=== PATIENT | female | born 1995 ===

== ENCOUNTER 2022-05-22 20:37 | Inpatient (IN) | payer MEDICAID ==
[2022-05-22 20:54] VITALS: BP 113/56; PULSE 73; RESP 18; TEMP 97.5
[2022-05-22] MEDS ORDERED: ACETAMINOPHEN TAB 325 MG TAB PO PRN (21:33)
[2022-05-22] MEDS ORDERED: MAG HYDROX/AL HYDROX/SIMETH 30 ML CUP PO PRN (21:33)
[2022-05-22] MEDS ORDERED: MAGNESIUM HYDROXIDE 2,400 MG/10 ML CUP PO PRN (21:33)
[2022-05-22] MEDS: diphenhydrAMINE 50 MG CAP PO PRN (21:53)
--- NOTE | 2022-05-23 04:11 | P.MDCNMH ---
History of Present Illness H&P Date: 05/23/22 Chief Complaint: depression 26 year old female with epilepsy off her medications with most recent seizure 2 months ago. she stopped her meds due to , currently she is 12 weeks , desired with supportive baby father. patient has two other kids. she comes in for psych evaluation due to depression , she used to be on zoloft , but stopped her meds due to , she denies suicidal ideation , denies any auditory or visual hallucinations. she is following with OB OP for care, and claims to be uptodate on shots and tests. denies tobacco smoking, illicit drugs or alcohol denies any fever, chills, bleeding, vaginal discharge, abd pain , chest pain , trouble breathing, nausea or vomiting Review of Systems Pertinent positives as noted in HPI. All other systems were reviewed and are negative Past Medical History Additional Past Medical History / Comment(s): epilepsy Smoking Status: Never smoker Past Alcohol Use History: None Reported Past Drug Use History: None Reported - Past Family History family Additional Family Medical History / Comment(s): no cardiac history Medications and Allergies Allergies Allergy/AdvReac Type Severity Reaction Status Date / Time codeine Allergy Unknown Verified 05/22/22 14:10 haloperidol [From Haldol] Allergy Unknown Verified 05/22/22 14:10 Physical Exam Vitals: Vital Signs Temp Pulse Resp BP Pulse Ox 05/22/22 20:52 97.5 F L 73 18 113/56 97 Intake and Output 05/22/22 05/22/22 05/23/22 14:59 22:59 06:59 Other: Weight 119 kg Constitutional: No acute distress, conversant, pleasant Eyes: Anicteric sclerae, moist conjunctiva, Pupils equal round reactive to light ENMT: NC/AT Oropharynx clear, no erythema, or exudates Neck: Supple, no masses, or JVD No carotid bruits No thyromegaly Lungs: Clear to auscultation Clear to percussion Normal respiratory effort, no accessory muscle use Cardiovascular: Heart regular in rate and rhythm, No murmurs, gallops, or rubs No peripheral edema Abdominal: Soft Nontender, no guarding, rebound or rigidity Abdomen moving with respiration Normoactive bowel sounds No hepatomegaly, No splenomegaly No palpable mass Skin: Normal temperature, tone, texture, turgor Extremities: No digital cyanosis No clubbing Pedal pulses intact and symmetrical Radial pulses intact and symmetrical No calf tenderness Psychiatric: Alert and oriented to person, place and time Neuro Muscles Strength 5/5 in all 4 extremities Sensation to light touch grossly present throughout Cranial nerves II-XII grossly intact Lymphatics: no palpable cervical or supraclavicular lymph nodes Cranial Nerve Examination - Cranial Nerves Cranial Nerve II- Optic: Intact Cranial Nerve III- Oculomotor: Intact Cranial Nerve IV- Trochlear: Intact Cranial Nerve V- Trigeminal: Intact Cranial Nerve - Abducens: Intact Cranial Nerve VII- Facial: Intact Cranial Nerve VIII- Auditory: Intact Cranial Nerve IX- Glossopharyngeal: Intact Cranial Nerve X- Vagus: Intact Cranial Nerve XI- Accessory: Intact Cranial Nerve XII- Hypoglossal: Intact Assessment and Plan Assessment: depression , management per psych 12 weeks continue with vitamins continue OP OB follow up h/o epilepsy off her meds due to consider neuro consult for recommendations most recent breakthrough seizure 2 months ago follow up blood work Thank you for allowing us to participate in the care of this patient. We will follow peripherally. Do not hesitate to contact us with questions. Someone can be reached from the [facility] hospitalist group at all hours of the day at [phone].
[2022-05-23] MEDS: PRENATAL VIT-IRON-FOLIC ACID 1 EACH TABLET PO SCH (08:16)
[2022-05-23] MEDS ORDERED: CITALOPRAM HYDROBROMIDE 10 MG TAB PO STA (10:05)
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
[2022-05-23] MEDS: diphenhydrAMINE 50 MG CAP PO PRN (20:02)
[2022-05-24] MEDS: CITALOPRAM HYDROBROMIDE 10 MG TAB PO SCH (08:30)
[2022-05-24] MEDS: PRENATAL VIT-IRON-FOLIC ACID 1 EACH TABLET PO SCH (09:29)
[2022-05-24] MEDS: diphenhydrAMINE 50 MG CAP PO PRN (21:15)
--- NOTE | 2022-05-24 21:21 | P.PN ---
Progress Note - Text Progress Note Date: 05/24/22 Interval history: Patient was seen socializing with male peer and was directable and agreeable to speak with fiction and nonfiction prose writer. She reports mood is "fine", reports good sleep and appetite. She denies any concerns currently. At this time patient denies any suicidal or homicidal ideation, intent or plan; and denies any auditory or visual hallucinations. Patient denies any side effects from the medications and has been compliant with meds. Mental status exam: General Appearance: Patient appears to be obese, stated age, fair hygiene. Behavior: No agitated behavior. Patient is calm and directable. Speech: Patient's speech is fluent and non-pressured. Mood/Affect: Mood is improving mildly, affect is congruent and constricted. Suicidality/Homicidality: Patient denies having any suicidal or homicidal ideation intent or plan. Perceptions: Patient denies any auditory or visual hallucinations. Though content/process: There is no evidence of any delusional thought content and thought process is linear and goal-directed. Memory and concentration: AOX3, grossly intact for the purposes of this session Judgment and insight: improving mildly Assessment/Plan: Continue with current diagnosis. Patient continues to meet criteria for inpatient psychiatric admission for symptom stabilization and safety. Patient will be maintained on current psychotropic medication regimen. Monitor for medication compliance and for any psychotropic medication side effects. Will continue to monitor ongoing response to treatment. Encouraged participation in milieu.
[2022-05-25] MEDS ORDERED: diphenhydrAMINE 50 MG/ML 1 ML VIAL IM STA (01:42)
[2022-05-25] MEDS ORDERED: OLANZapine 10 MG VIAL IM STA (01:43)
[2022-05-25] MEDS: CITALOPRAM HYDROBROMIDE 10 MG TAB PO SCH (10:21)
[2022-05-25] MEDS: PRENATAL VIT-IRON-FOLIC ACID 1 EACH TABLET PO SCH (10:21)
[2022-05-25] MEDS ORDERED: OLANZapine 5 MG TAB PO PRN (21:17)
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
[2022-05-25] MEDS: diphenhydrAMINE 50 MG CAP PO PRN (22:31)
[2022-05-26] MEDS: CITALOPRAM HYDROBROMIDE 10 MG TAB PO SCH (09:15)
[2022-05-26] MEDS: PRENATAL VIT-IRON-FOLIC ACID 1 EACH TABLET PO SCH (09:15)
--- NOTE | 2022-05-26 13:00 | P.PN ---
Progress Note - Text Progress Note Date: 05/26/22 S&O: Patient was seen in rounds. She refused to talk to me or come for the examination when she was called this morning. She said she is 12 weeks and came to the hospital to be put down some other medications than Zoloft since she is . She was started on Celexa and is now taking 10 mg a day. PDR gives information only about breast-feeding and not the dangers of taking Celexa when she is . She was counseled about it and she is fine with taking Celexa. She said her depression is getting better and suicide thoughts are not there at all. She said she was in the correction and she will be returning to the correction when we discharge her. Following this she left the office and refused to stay and participate with the examination any further. While she was in the office she did not show any psychomotor agitation or retardation. Her speech was short and goal-directed. Her mood was euthymic and affect was blunted. She denied suicide and homicide thoughts, hallucinations and delusional thinking. Her sensorium appeared to be clear. A&P: Continue current medications therapy and supervision.
[2022-05-26] MEDS: diphenhydrAMINE 50 MG CAP PO PRN (19:54)
[2022-05-26] MEDS ORDERED: OLANZapine 10 MG VIAL IM STA (23:34)
[2022-05-26] MEDS ORDERED: diphenhydrAMINE 50 MG/ML 1 ML VIAL IM STA (23:35)
[2022-05-27] MEDS: PRENATAL VIT-IRON-FOLIC ACID 1 EACH TABLET PO SCH (09:37)
[2022-05-27] MEDS: CITALOPRAM HYDROBROMIDE 10 MG TAB PO SCH (09:38)
--- NOTE | 2022-05-27 11:46 | P.PN ---
Progress Note - Text Progress Note Date: 05/27/22 Neurology is consulted on this patient since has hx of epilepsy and patient complaining she has not been restarted on her seizure medication (Vimpat). I was notified that she is not having any recurrent seizure activity. Patient refused to be evaluated by neurology team. Some of the history is obtained form the patient's psychiatric nursing staff. To be brief this is a 26-year-old woman who is 12 week gestation. It seems that her last breakthrough seizure was in December 2021 and it was due to her not getting her Vimpat. She was evaluated my [facility] neurologist (Dr. Kimberly Colmenares) who recommended the patient to resume her Vimpat to 100 mg 1 tablet twice a day since Lamictal will take time to be in the system since in these to be titrated up. Also was recommended for the patient to be on folic acid. It seems to the patient that tried Keppra and Depakote according the to the neurology note but either failed or side-effects. Then the patient was transferred to the our psych unit and was diagnosed for major depression and has PTSD. Assessment and Plan: Hx of epilepsy and last seizure reported was on 12/2021. 12 weeks gestation Major depression PTSD I agree with the neurology recommendation of consideration of resuming Vimpat but has teratogonecity. But the benefit outweighs the risk of seizure/status to patient and . If she desires not to be on it because of the side effects consider Lamictal with titration 25mg 1tab daily and increase 25mg 1 tab bid with titration to 100mg 1 tab bid and need levels monitored. There is increase risk of rash with Lamictal during . Agree with starting on Folic acid 4mg daily. Recommend to follow-up with epileptologist as outpatient for her epilepsy management. Please notify neurology team if any further concerns. Plans is discussed with nursing staff.
--- NOTE | 2022-05-27 13:57 | P.PN ---
Progress Note - Text Progress Note Date: 05/27/22 S&O: Patient was seen in rounds. I had tried to see her this morning and she was laying down in her bed and refused to talk to me. Actually she did not even wake up when I tried to call her name several times. She said she is doing okay on Celexa and feels she is ready to return to the group home. She does not have any other complaints. She apparently had refused to see the neurologist the neurologist today regarding her Vimpat/antiseizure medications. The progress note written by Dr. Carter states that Vimpat has potential for teratogenicity. This information was shared with the patient and she refused to take it because of teratogenicity. This is an obese ambulatory female with adequate hygiene. She does not show any psychomotor agitation or retardation. Her speech is goal-directed. Mood is euthymic and affect is appropriate to the thought content. She denies hallucinations delusional thinking suicide and homicidal thoughts. Her sensorium is clear. A&P: Continue Celexa, therapies and supervisions. Her discharge plan will be discussed in the treatment team meeting tomorrow. Patient agreed with this.
[2022-05-27] MEDS: diphenhydrAMINE 50 MG CAP PO PRN (19:08)
[2022-05-28] MEDS: CITALOPRAM HYDROBROMIDE 10 MG TAB PO SCH (10:10)
[2022-05-28] MEDS: PRENATAL VIT-IRON-FOLIC ACID 1 EACH TABLET PO SCH (10:10)
--- NOTE | 2022-05-28 11:43 | P.DS ---
Providers Date of admission: 05/22/22 20:37 Expected date of discharge: 05/28/22 Attending physician: Steffen Velez MD Consults: 05/22/22 21:33 Consult Physician Routine Consulting Provider: Danie Roa Consult Reason/Comments: Medical H&P Do you want consulting provider notified?: Yes 05/26/22 19:27 Consult Physician Routine Consulting Provider: Adan Conway Consult Reason/Comments: Epileptic pt. who is needs anti-sz med Do you want consulting provider notified?: Yes Primary care physician: Stated None - Discharge Diagnosis(es) (1) Depressive disorder Current Visit: Yes Status: Acute Priority: High Hospital Course: Patient had her psychiatric H&P done on 05/23/[address] Velez and general medical history and physical done by Dr. Lugo on the same day. She was started on Celexa 10 mg a day after she had her psychiatric H&P. She took this medication without any problem and started to feel better already. Actually she said she came to the hospital to be put on some antidepressant which will not have teratogenic effect. She has the history of seizure disorder in the past, was evaluated by the medical clinic and consultation with neurologist. Apparently she was on Vimpat in the past and she refused to take it since it has teratogenic effect. She did not participate in any of the group activities and did not socialize with peers. Most of the time she was staying by herself. Since she was started on Celexa and felt she was good enough to go back to the long-term and since it was agreed upon by the treatment team it was agreed to discharge her today. Patient Condition at Discharge: Good Plan - Discharge Summary Discharge Rx Participant: Yes New Discharge Prescriptions: New Citalopram Hydrobromide [CeleXA] 10 mg PO DAILY 30 Days #30 tab Discontinued Lacosamide [Vimpat] 100 mg PO BID Discharge Medication List Citalopram Hydrobromide [CeleXA] 10 mg PO DAILY 30 Days #30 tab 05/28/22 [Rx] Activity/Diet/Wound Care/Special Instructions: Avoid the use of street drugs and alcohol. Take all prescriptions as prescribed. When you are in need of refills on your medications, please contact your medical provider and/or outpatient psychiatrist to have this done. Please go to scheduled outpatient appointment for aftercare treatment. If symptoms return or become worse, call the crisis line at and/or go to the nearest emergency room for evaluation.
== END 2022-05-28 12:55 | disposition still patient (30) | DRG 832 ==
LOC: 3MHU 20:37
PROVIDERS: ADMIT Psychiatry & Neurology Psychiatry; ATTEND Psychiatry & Neurology Psychiatry
DX: O99.341 Other mental disorders complicating pregnancy, first trimester (principal); R45.851 Suicidal ideations; O99.351 Diseases of the nervous system complicating pregnancy, first trimester; G40.909 Epilepsy, unspecified, not intractable, without status epilepticus; E66.9 Obesity, unspecified; F32.9 Major depressive disorder, single episode, unspecified; O99.211 Obesity complicating pregnancy, first trimester; F43.10 Post-traumatic stress disorder, unspecified; F41.9 Anxiety disorder, unspecified; T43.226A Underdosing of selective serotonin reuptake inhibitors, initial encounter; Z91.128 Patient's intentional underdosing of medication regimen for other reason; Z3A.12 12 weeks gestation of pregnancy; Z59.01 Sheltered homelessness; Z65.3 Problems related to other legal circumstances; Z78.1 Physical restraint status; Z28.310 Unvaccinated for COVID-19; Z88.5 Allergy status to narcotic agent; Z88.8 Allergy status to other drugs, medicaments and biological substances; Z91.52 Personal history of nonsuicidal self-harm; Z91.410 Personal history of adult physical and sexual abuse; Z79.899 Other long term (current) drug therapy

== ENCOUNTER 2023-12-08 15:57 | Inpatient (IN) | payer MEDICAID, OTHER ==
[2023-12-08] MEDS ORDERED: MAG HYDROX/AL HYDROX/SIMETH 355 ML BOTTLE PO PRN (16:29)
[2023-12-08] MEDS ORDERED: LORazepam 2 MG/ML INJ IM PRN (16:29)
[2023-12-08] MEDS ORDERED: ACETAMINOPHEN TAB 325 MG TAB PO PRN (16:29)
[2023-12-08] MEDS ORDERED: IBUPROFEN 600 MG TAB PO PRN (16:29)
[2023-12-08] MEDS: traZODone HCL 50 MG TAB PO SCH (23:49)
[2023-12-08] MEDS: LORazepam 1 MG TAB PO PRN (23:49)
[2023-12-08] MEDS: busPIRone HCl 10 MG TAB PO SCH (23:49)
[2023-12-09] MEDS: ARIPiprazole 10 MG TAB PO SCH (08:37)
[2023-12-09] MEDS: NICOTINE 14MG/24HR PATCH TRANSDERM SCH (08:37)
--- NOTE | 2023-12-09 10:47 | P.HP ---
Psychiatric H&P - . H&P Date: 12/09/23 History & Physical: IDENTIFYING DATA: Ness is a 28-year-old single female transferred from the [facility] emergency room with a petition for suicidal ideation HISTORY OF PRESENT ILLNESS: Chart reviewed and patient interviewed. She has a long history of mental illness and psychiatric treatment. She said she was discharged from [facility] 2 weeks ago and placed in a halfway called [facility]. The 30-day hospitalization was involuntarily and she was court ordered to halfway placement. She eloped from the halfway as soon as she arrived. She alleged that she was living with a girlfriend after she left the halfway. She talked about drinking alcohol but was quite evasive about frequency and amount. On the day of admission she smoked crack on "for the first time." The admission was prompted by her calling the police from a gas station. She was unable to explain the reason for calling the police other that she was "drunk." At the time of this interview she denied thoughts of or suicide. She said that she did not want to be in the halfway although she had been ordered there and would rather live with her friend. PAST PSYCHIATRIC HISTORY: She first received mental health treatment at the age of 14. She estimates that she has had between 50 and 60 psychiatric hospitalizations in her life. She was just discharged from another psychiatric facility and is currently on a court order for treatment. She has had 3 prior suicide attempts. She has history of cutting; she last cut herself with a razor 2 years ago. She is enrolled in community mental health in [facility] and prescribed Abilify 10 mg daily, BuSpar 20 mg 3 times daily and trazodone 50 mg at bedtime. She is evasive about her alcohol use but admits to drinking frequently. Denied residential substance abuse treatment. PAST MEDICAL HISTORY: Denied a history of medical problems. She had a in October 2022. ALLERGIES: Codeine, haloperidol SUBSTANCE USE HISTORY: Evasive about history of use admits recent use of crack cocaine. FAMILY PSYCHIATRIC/SUBSTANCE USE HISTORY: No reported family psychiatric history LEGAL HISTORY: Not on probation or has pending charges. 5 months in prison for domestic violence charges SOCIAL HISTORY: He was born in [place] and raised in [facility]. She is currently living with a friend although we have not verified her living situation. She was raised by her grandfather and her mother. She described her father as a drunk and addict. She has 3 children; two are in open adoption and 1 is living with her mother. 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 MENTAL STATUS EXAM: She presented as a carefully groomed moderately obese 28-year-old female. She made eye contact and attend the interview. She has multiple scars along both forearms. No prominent physical abnormalities. She had a blunted but bright facial expression. She was alert and oriented to person, place and time. No abnormality of psychomotor activity. Her speech was spontaneous with normal rate, rhythm and volume. No articulation difficulties. Her affect was blunted but stable and appropriate. No suicidal ideation, wish or homicidal ideation. No depressive cognitions. She was not obsessive, ruminative or express phobias. She denied ideas of reference, paranoid ideation or delusions. Her thinking was concrete but associations were coherent, logical and goal directed. She denied hallucinations did not appear to be responding to internal stimuli. Global impression of intellect is average. She has limited insight or understanding her illness but is accepting of treatment. STRENGTHS: Good physical health, involvement in mental health services WEAKNESSES: Alcohol use problems, erratic living situation, impulsiveness IMPRESSION: He is a 28-year-old female transferred from [facility] involuntarily with a history of alcohol intoxication and suicidal ideation. She has a complicated psychiatric history with multiple psychiatric hospitalizations. She is in violation of a continuing order for treatment. Following her last psychiatric hospitalization she was placed in a halfway from which she left and has been living apparently with a girlfriend for the last 2 weeks. She is an inpatient basis with Psychopharmacology and multiple therapy. PRINCIPLE DIAGNOSIS: Alcohol intoxication, poor compliance with treatment, borderline personality disorder, rule out major depressive disorder, rule out bipolar disorder rule out cocaine use disorder RECOMMENDATION: Admit to the psychiatric unit. She signed a voluntary admission. Resume outpatient medications-Abilify 10 mg daily, BuSpar 20 mg 3 times daily a.m. trazodone 50 mg at bedtime, consult medicine for initial physical exam and medical history. Social work, nursing and activity therapy assessment, encourage participation in therapeutic groups and activities. Evaluate clinical status response to treatment daily basis. Allergies Allergy/AdvReac Type Severity Reaction Status Date / Time codeine Allergy Unknown Verified 05/22/22 14:10 haloperidol [From Haldol] Allergy Unknown Verified 05/22/22 14:10 Vital Signs Temp 97.2 F L 12/09/23 04:09 Pulse 107 H 12/09/23 04:09 Resp 16 12/09/23 04:09 BP 122/69 12/09/23 04:09 Pulse Ox 99 12/08/23 23:11 FiO2 Intake & Output 12/08/23 12/09/23 12/09/23 18:59 06:59 18:59 Weight 109 kg 129.319 kg 12/09/23 10:26 12/09/23 13:01
[2023-12-09] MEDS: NICOTINE GUM (POLACRILEX) 2 MG GUM BUCCAL PRN (12:02)
[2023-12-09 13:47] LABS: Basophils % (A) 1 %; Eosinophils # (A) 0.2 k/uL (0-0.7); Eosinophils % (A) 3 %; HCT 43.6 % (34.0-46.0); HGB 14.1 gm/dL (11.4-16.0); Lymphocytes # (A) 1.6 k/uL (1.0-4.8); Lymphocytes % (A) 24 %; MCH 30.5 pg (25.0-35.0); MCHC 32.3 g/dL (31.0-37.0); MCV 94.4 fL (80.0-100.0); Mean Platelet Volume 7.5; Monocytes # (A) 0.5 k/uL (0-1.0); Monocytes % (A) 7 %; Neutrophils # (A) 4.3 k/uL (1.3-7.7); Neutrophils % (A) 64 %; Platelet Count 336 k/uL (150-450); RBC 4.62 m/uL (3.80-5.40); RDW 12.9 % (11.5-15.5); WBC 6.8 k/uL (3.8-10.6)
[2023-12-09 14:00] LABS: ALT 54 U/L (4-34); AST 43 U/L (14-36); African American GFR (CKD) >90 (>60 ml/min/1.73 sqM); Albumin 4.5 g/dL (3.5-5.0); Alkaline Phosphatase 111 U/L (38-126); Anion Gap 6 mmol/L; Bilirubin, Delta 0.2 mg/dL (0.0-0.2); Bilirubin,Unconjugated 0.1 mg/dL (0.0-1.1); Blood Urea Nitrogen 7 mg/dL (7-17); Calcium 8.9 mg/dL (8.4-10.2); Carbon Dioxide 29 mmol/L (22-30); Chloride 104 mmol/L (98-107); Glucose 98 mg/dL (74-99); Non-African American GFR(CKD) >90 (>60 ml/min/1.73 sqM); Potassium 4.3 mmol/L (3.5-5.1); Sodium 139 mmol/L (137-145); Total Bilirubin 0.3 mg/dL (0.2-1.3); Total Protein 7.5 g/dL (6.3-8.2)
[2023-12-09] MEDS ORDERED: OLANZapine 10 MG VIAL IM PRN (19:56)
[2023-12-09] MEDS: OLANZapine ODT 10 MG TAB PO PRN (20:02)
[2023-12-09 20:14] LABS: Chol/HDL Ratio 2.64 Ratio; LDL Cholesterol,Calculated 74.3 mg/dL (0.0-131.0)
[2023-12-09 22:48] VITALS: PULSE 92; RESP 18
--- NOTE | 2023-12-10 01:22 | P.CONS ---
History of Present Illness - Reason for Consult Consult date: 12/10/23 - History of Present Illness The patient is a 38-year-old female with a PMH of polysubstance and alcohol abuse as well as marijuana abuse who was transferred from [facility] where the patient had presented for depression and suicidal ideation. Patient reports that she has been struggling with her substance use most recently crack and cocaine as well as drinking 1/5 of hard liquor daily since she was 19 years old. Reports that her last drink was Thursday and also reports smoking half a pack of cigarettes daily with recreational marijuana use. She denied any physical complaints at the time of interview. Denied experiencing chest discomfort, shortness of breath, fever, chills, cough, nausea, vomiting, abdominal pain, diarrhea. Review of systems: Pertinent positives and negatives as discussed in HPI, a complete review of systems was performed and all other systems are negative. Physical examination: General: non toxic, no distress, appears at stated age, morbidly obese Derm: no unusual rashes/lesions, no unusual ecchymoses, warm, dry Head: atraumatic, normocephalic, symmetric Eyes: EOMI, no lid lag, anicteric sclera ENT: Nose and ears atraumatic, no thrush, no pharyngeal erythema Neck: trachea midline, supple Mouth: no lip lesion, mucus membranes moist Cardiovascular: S1S2 reg, no murmur, no edema Lungs: CTA bilateral, no rhonchi, no rales , no accessory muscle use Abdominal: soft, nontender to palpation, no guarding Ext: no gross muscle atrophy, no contractures, Neuro: No gross focal neuro deficits noted Psych: Alert, oriented, appropriate affect Assessment: Polysubstance abuse including crack cocaine, alcohol, and marijuana Transaminitis, likely due to alcohol abuse Depression and suicidal ideation Imaging: None performed Data Review: Reviewed with WBC count 6.8, hemoglobin 14.1, sodium 139, potassium 4.3, BUN 7, creatinine 0.60, AST 43, ALT 54 Plan: Strongly advised on the importance of cessation from substance use Monitor for signs of withdrawal from alcohol Defer management of depression and suicidal ideation to the primary psychiatry service Thank you for allowing us to participate in the care of this patient. We will follow peripherally. Do not hesitate to contact us with questions. Someone can be reached from the [facility] hospitalist group at all hours of the day at [phone]. Past Medical History Past Medical History: Neurologic Disorder Additional Past Medical History / Comment(s): epilepsy History of Any Multi-Drug Resistant Organisms: None Reported Past Surgical History: Section, Hysterectomy Additional Past Surgical History / Comment(s): Total hysterectomy Past Anesthesia/Blood Transfusion Reactions: No Reported Reaction Past Psychological History: Anxiety, Bipolar, Depression Smoking Status: Current every day smoker Past Alcohol Use History: None Reported Past Drug Use History: None Reported - Past Family History family Family Medical History: Hypertension Additional Family Medical History / Comment(s): no cardiac history Medications and Allergies Home Medications Medication Instructions Recorded Confirmed Type Citalopram Hydrobromide [CeleXA] 10 mg PO DAILY 30 Days #30 tab 05/28/22 Rx Allergies Allergy/AdvReac Type Severity Reaction Status Date / Time codeine Allergy Unknown Verified 05/22/22 14:10 haloperidol [From Haldol] Allergy Unknown Verified 05/22/22 14:10 Physical Exam Vitals: Vital Signs Temp Pulse Resp BP Pulse Ox 12/09/23 22:14 92 18 134/88 98 12/09/23 04:09 97.2 F L 107 H 16 122/69 Results CBC & Chem 7: 12/09/23 12:52 12/09/23 12:52 Labs: Abnormal Lab Results - Last 24 Hours (Table) 12/09/23 Range/Units 12:52 AST 43 H (14-36) U/L ALT 54 H (4-34) U/L
[2023-12-10 08:18] VITALS: BP 118/69; TEMP 96.3
--- NOTE | 2023-12-10 11:33 | P.DS ---
Providers Date of admission: 12/08/23 23:10 Attending physician: Masood Hood MD Consults: 12/08/23 16:29 Consult Physician Routine Consulting Provider: [facility] Consult Reason/Comments: Medical H&P Do you want consulting provider notified?: Yes Primary care physician: Stated None - Discharge Diagnosis(es) (1) Alcohol use disorder Current Visit: Yes Status: Chronic Priority: High (2) Alcohol intoxication Current Visit: Yes Status: Acute (3) Cocaine use Current Visit: Yes Status: Acute Priority: Medium (4) Suicidal ideation Current Visit: Yes Status: Acute Priority: Low Hospital Course: HISTORY: Ness is a 28-year-old single female transferred from the [facility] emergency room with a petition for suicidal ideation. She has a long history of mental illness and psychiatric treatment. She said she was disc harged from [facility] ago and placed in a [place] [facility] [place] called [facility]. The 30-day hospitalization was involuntarily and she was court ordered to [place] [facility] [place] placement. [place] from the [place] soon as she arrived. She alleged that she was living with a girlfriend after she left the [place]. She talked about drinking alcohol but was quite evasive about frequency and amount. On the day of admission she smoked crack on "for the first time." The admission was prompted by her calling the police from a gas station. She was unable to explain the reason for calling the police other that she was "drunk." HOSPITAL COURSE: We admitted her to the psychiatric unit under the care of this marketing copywriter. She agreed to a voluntary admission. She received comprehensive biopsychosocial assessment. The technical support consultant semiconductor dies loader completed initial physical exam and did not diagnose a major medical illness. We resumed her outpatient medications including Abilify 10 mg daily, BuSpar 20 mg 3 times daily and trazodone 50 mg at bedtime. She had no signs and symptoms of alcohol withdrawal. She was compliant with medications. He had no episodes of beh avioral dyscontrol. The day following admission she requested to be discharged to her girlfriend's home. The director social welfare verified that she is under a court order for mental health treatment but is not court ordered to a [place] facility. MENTAL STATUS ON DISCHARGE: She presented as a casually groomed moderately obese female who is pleasant and cooperative. She made eye contact and attentive the interview. She showed no abnormality of psychomotor activity. Speech was spontaneous with decreased rate and volume. Her affect was blunted but stable and appropriate. No suicidal ideation, wishes or homicidal ideation. No depressive cognitions. No ideas of reference,. No ideation or delusions. Thinking was concrete but associations were coherent. No hallucinations. DISPOSITION: She will return to [place] where she plans to live with girlfriend. Social work will provide a bus tickets for her to return home. Follow-up at [facility]. Discharge medications listed below. Patient Condition at Discharge: Stable Plan - Discharge Summary Discharge Rx Participant: Yes New Discharge Prescriptions: New busPIRone HCl [Buspar] 20 mg PO TID tab traZODone HCL [Desyrel] 50 mg PO HS #0 tab Nicotine Gum (Polacrilex) [Nicorette] 2 mg BUCCAL Q4HR PRN pieceofgum PRN Reason: Nicotine Cravings ARIPiprazole [Abilify] 10 mg PO DAILY tab Discontinued Citalopram Hydrobromide [CeleXA] 10 mg PO DAILY 30 Days #30 tab Discharge Medication List ARIPiprazole [Abilify] 10 mg PO DAILY tab 12/10/23 [Rx] Nicotine Gum (Polacrilex) [Nicorette] 2 mg BUCCAL Q4HR PRN pieceofgum 12/10/23 [Rx] busPIRone HCl [Buspar] 20 mg PO TID tab 12/10/23 [Rx] traZODone HCL [Desyrel] 50 mg PO HS #0 tab 12/10/23 [Rx] Follow up Appointment(s)/Referral(s): [facility], [facility] [Other] - 1 Week [facility] [Other] - 12/15/23 2:30 pm Patient Instructions/Handouts: How to Stop Smoking (ED), Depression (GEN), Abuse of Alcohol (DC) Activity/Diet/Wound Care/Special Instructions: Avoid the use of street drugs and alcohol. Take all medications as prescribed. When you are in need of refills on your medications, please contact your medical provider and/or outpatient psychiatrist/provider to have this done. Please go to your scheduled outpatient appointment for aftercare treatment. If symptoms return or become worse, call the crisis line at and/or go to the nearest emergency room for evaluation. National Suicide Hotline 988 Discharge Disposition: HOME SELF-CARE
== END 2023-12-10 13:36 | disposition home or self-care (01) | DRG 753 ==
LOC: 3MHU 23:10
PROVIDERS: ADMIT Psychiatry & Neurology Psychiatry; ATTEND Psychiatry & Neurology Psychiatry
DX: F31.9 Bipolar disorder, unspecified (principal); F60.3 Borderline personality disorder; G40.909 Epilepsy, unspecified, not intractable, without status epilepticus; R45.851 Suicidal ideations; F17.210 Nicotine dependence, cigarettes, uncomplicated; F14.10 Cocaine abuse, uncomplicated; F10.129 Alcohol abuse with intoxication, unspecified; E66.9 Obesity, unspecified; Z79.899 Other long term (current) drug therapy; Z91.199 Patient's noncompliance with other medical treatment and regimen due to unspecified reason; Z91.51 Personal history of suicidal behavior; Z91.52 Personal history of nonsuicidal self-harm; F19.10 Other psychoactive substance abuse, uncomplicated; F12.10 Cannabis abuse, uncomplicated; F41.9 Anxiety disorder, unspecified; R74.01 Elevation of levels of liver transaminase levels; Z68.42 Body mass index [BMI] 45.0-49.9, adult; Z71.6 Tobacco abuse counseling; Z88.5 Allergy status to narcotic agent; Z88.8 Allergy status to other drugs, medicaments and biological substances; Z28.21 Immunization not carried out because of patient refusal; Z28.310 Unvaccinated for COVID-19
CPT/HCPCS: 80053; 80061; 82248; 83036; 84443; 85025